=== PATIENT | female | born 1945 | race Caucasian/White ===

== ENCOUNTER 2017-05-14 11:31 | Emergency (ER) | payer OTHER, MEDICARE ==
[~2017-05-14] VITALS: Ht 167.6 cm; Wt 107.0 kg
[2017-05-14 12:47] LABS: BASOPHIL (%) 0.3 % (0-1); EOSINOPHIL (%) 3.2 % (0-5); EOSINOPHIL COUNT 0.3 K/uL (0-0.3); HEMATOCRIT 30.8 % (36.0-46.0); HEMOGLOBIN 10.1 G/DL (11.9-15.5); IMMATURE GRANULOCYTE (%) 0.8 % (0.0-0.7); LYMPHOCYTE (%) 14.2 % (15-42); LYMPHOCYTE COUNT 1.4 K/uL (1.0-2.8); MCH 30.9 PG (29.0-34.0); MCHC 32.8 G/DL (30.0-36.0); MCV 94.2 FL (83-99); MONOCYTE (%) 10.1 % (3-12); NEUTROPHIL (%) 71.4 % (45-76); NEUTROPHIL COUNT 7.1 K/uL (1.8-6.4); NRBC (%) 0.2 /100 WBC (0-0); PLATELET COUNT 522 K/uL (156-360); RBC DIS.WIDTH-CV 16.7 % (11.8-14.6); RBC DIS.WIDTH-SD 57.1 % (39-53); RED BLOOD COUNT 3.27 M/uL (3.80-5.20); WHITE BLOOD COUNT 9.9 K/uL (4.1-10.2)
[2017-05-14 12:54] LABS: CHLORIDE 108 mEq/L (99-109); POTASSIUM 4.5 mEq/L (3.7-5.4); SODIUM 139 mEq/L (136-147)
[2017-05-14 12:56] LABS: GLUCOSE 94 mg/dL (70-99)
[2017-05-14 13:00] LABS: CREATININE 0.6 mg/dL (0.6-1.3); GFR ESTIMATE (CALCULATED) > 59 mL/min/
[2017-05-14 13:01] LABS: UREA NITROGEN (BUN) 13 mg/dL (9-23)
[2017-05-14 13:03] LABS: INTER. NORMALIZED RATIO 1.5
[2017-05-14 15:00] VITALS: BP 128/75
== END 2017-05-14 15:45 ==
LOC: EME 11:31
PROVIDERS: Emergency Medicine
DX: M96.840 Postprocedural hematoma of a musculoskeletal structure following a musculoskeletal system procedure (principal); I10 Essential (primary) hypertension; E78.5 Hyperlipidemia, unspecified; K21.9 Gastro-esophageal reflux disease without esophagitis; Z98.890 Other specified postprocedural states; Z79.01 Long term (current) use of anticoagulants; Z86.73 Personal history of transient ischemic attack (TIA), and cerebral infarction without residual deficits; Z98.84 Bariatric surgery status
CPT/HCPCS: 80048; 85025; 85610; 99281; 99285

== ENCOUNTER 2017-07-19 18:22 | Inpatient (IN) | payer OTHER, MEDICARE ==
[~2017-07-19] VITALS: Ht 167.6 cm; Wt 97.6 kg
[2017-07-19 20:31] LABS: BASOPHIL (%) 0.1 % (0-1); EOSINOPHIL (%) 0.6 % (0-5); EOSINOPHIL COUNT 0.1 K/uL (0-0.3); HEMATOCRIT 38.9 % (36.0-46.0); IMMATURE GRANULOCYTE (%) 0.8 % (0.0-0.7); LYMPHOCYTE (%) 10.5 % (15-42); LYMPHOCYTE COUNT 1.4 K/uL (1.0-2.8); MCH 31.3 PG (29.0-34.0); MCHC 33.4 G/DL (30.0-36.0); MCV 93.7 FL (83-99); MONOCYTE COUNT 0.5 K/uL (0-0.8); NEUTROPHIL COUNT 11.4 K/uL (1.8-6.4); RBC DIS.WIDTH-CV 15.1 % (11.8-14.6); RBC DIS.WIDTH-SD 52.6 % (39-53); RED BLOOD COUNT 4.15 M/uL (3.80-5.20); WHITE BLOOD COUNT 13.6 K/uL (4.1-10.2)
[2017-07-19 20:39] LABS: ALBUMIN 3.2 g/dL (3.2-4.8); CHLORIDE 105 mEq/L (99-109); POTASSIUM 4.5 mEq/L (3.7-5.4); SODIUM 138 mEq/L (136-147)
[2017-07-19 20:41] LABS: GLUCOSE 115 mg/dL (70-99)
[2017-07-19 20:42] LABS: TOTAL PROTEIN 6.5 g/dL (6.4-8.3)
[2017-07-19 20:43] LABS: TOTAL BILIRUBIN 0.3 mg/dL (0.0-1.0)
[2017-07-19 20:45] LABS: ALKALINE PHOSPHATASE 136 IU/L (3-129); CREATININE 0.8 mg/dL (0.6-1.3); GFR ESTIMATE (CALCULATED) > 59 mL/min/
[2017-07-19 20:46] LABS: UREA NITROGEN (BUN) 21 mg/dL (9-23)
[2017-07-19 20:47] LABS: AST (GOT) 28 IU/L (2-34)
[2017-07-19 20:48] LABS: ALT (GPT) 30 IU/L (3-49)
[2017-07-19 21:30] LABS: PLAT.SUFFICIENCY ADEQUATE; PLATELET COUNT 255 K/uL (156-360)
[2017-07-19 23:37] LABS: INTER. NORMALIZED RATIO 2.5
[2017-07-20] MEDS ORDERED: SIMVASTATIN20 MG PO (09:27)
[2017-07-20] MEDS ORDERED: LEVOTHYROXINE50 MCG PO (09:27)
[2017-07-20] MEDS ORDERED: OMEPRAZOLE20 MG PO (09:27)
[2017-07-20] MEDS ORDERED: CITALOPRAM HBR20 MG PO (09:28)
[2017-07-20] MEDS ORDERED: WARFARIN SODIUM5 MG PO (09:29)
[2017-07-20] MEDS ORDERED: WARFARIN SODIUM2 MG PO (09:30)
[2017-07-20] MEDS ORDERED: ASPIR-LOW81 MG PO (09:30)
[2017-07-20] MEDS ORDERED: CALCIUM 500 MG1 EACH PO (09:31)
[2017-07-20] MEDS ORDERED: CYANOCOBALAM1000 MCG PO (09:31)
[2017-07-20] MEDS ORDERED: VITAMIN D31000 UNI2 PO (09:32)
[2017-07-20] MEDS ORDERED: PROBIOTIC1 EAC2 PO (09:32)
[2017-07-20 14:40] VITALS: BP 132/60
[2017-07-20 20:17] VITALS: BP 109/46
[2017-07-20 23:31] VITALS: BP 99/53
[2017-07-21 04:26] VITALS: BP 112/59
[2017-07-21 05:38] LABS: BASOPHIL (%) 0.4 % (0-1); EOSINOPHIL COUNT 0.3 K/uL (0-0.3); HEMATOCRIT 32.7 % (36.0-46.0); IMMATURE GRANULOCYTE (%) 0.3 % (0.0-0.7); INTER. NORMALIZED RATIO 2.4; LYMPHOCYTE (%) 17.9 % (15-42); LYMPHOCYTE COUNT 1.7 K/uL (1.0-2.8); MCH 31.4 PG (29.0-34.0); MCV 95.1 FL (83-99); MONOCYTE (%) 7.7 % (3-12); MONOCYTE COUNT 0.7 K/uL (0-0.8); NEUTROPHIL (%) 70.7 % (45-76); NEUTROPHIL COUNT 6.8 K/uL (1.8-6.4); PLATELET COUNT 220 K/uL (156-360); RBC DIS.WIDTH-CV 15.2 % (11.8-14.6); RBC DIS.WIDTH-SD 53.2 % (39-53); RED BLOOD COUNT 3.44 M/uL (3.80-5.20); WHITE BLOOD COUNT 9.6 K/uL (4.1-10.2)
[2017-07-21 05:39] LABS: HEMOGLOBIN 10.8 G/DL (11.9-15.5)
[2017-07-21 05:53] LABS: C-REACTIVE PROTEIN 125.2 MG/L (0-10); CHLORIDE 107 MEQ/L (99-109); CREATININE 0.6 MG/DL (0.6-1.3); GFR ESTIMATE (CALCULATED) > 59 mL/min/; POTASSIUM 3.9 MEQ/L (3.7-5.4); SODIUM 136 MEQ/L (136-147); UREA NITROGEN (BUN) 13 mg/dL (9-23)
[2017-07-21 05:54] LABS: GLUCOSE 76 mg/dL (70-99)
[2017-07-21 07:21] VITALS: BP 108/54
[2017-07-21 07:24] LABS: ERTH.SED.RATE 46 MM/HR (0-30)
[2017-07-21 10:58] VITALS: BP 120/58
[2017-07-21 16:23] VITALS: BP 122/56
[2017-07-21 23:08] VITALS: BP 119/59
[2017-07-22 06:24] LABS: INTER. NORMALIZED RATIO 2.4
[2017-07-22 07:52] VITALS: BP 112/56
[2017-07-23 00:14] VITALS: BP 113/75
[2017-07-23 06:00] LABS: INTER. NORMALIZED RATIO 2.6
[2017-07-23 08:00] VITALS: BP 122/59
[2017-07-23 11:42] VITALS: BP 134/58
[2017-07-23 15:55] VITALS: BP 116/59
[2017-07-23 23:28] VITALS: BP 127/60
[2017-07-24 06:24] LABS: INTER. NORMALIZED RATIO 2.6
[2017-07-24 08:28] VITALS: BP 113/55
[2017-07-24 12:00] VITALS: BP 111/56
[2017-07-24 16:40] VITALS: BP 124/58
[2017-07-25 00:25] VITALS: BP 124/56
[2017-07-25 06:02] LABS: INTER. NORMALIZED RATIO 2.7
[2017-07-25 08:41] VITALS: BP 103/47
[2017-07-25] MEDS ORDERED: CEFEPIME HCL2 GM IV (10:24)
[2017-07-25] MEDS ORDERED: ENDOCET 5-3251 EACH PO (10:25)
[2017-07-25 12:11] VITALS: BP 117/56
== END 2017-07-25 13:44 | disposition home health service (06) | DRG 863 ==
LOC: EME 18:22 → EDOF 07-20 03:15 → 3EAST 07-20 03:15 → ENRESERV 07-20 03:16 → 3EAST 07-20 14:21
PROVIDERS: Hospitalist; Internal Medicine; Physician Assistant
DX: T81.4XXA Infection following a procedure, initial encounter (principal); Y83.1 Surgical operation with implant of artificial internal device as the cause of abnormal reaction of the patient, or of later complication, without mention of misadventure at the time of the procedure; L03.115 Cellulitis of right lower limb; B96.5 Pseudomonas (aeruginosa) (mallei) (pseudomallei) as the cause of diseases classified elsewhere; I89.0 Lymphedema, not elsewhere classified; E03.9 Hypothyroidism, unspecified; E78.5 Hyperlipidemia, unspecified; I10 Essential (primary) hypertension; K21.9 Gastro-esophageal reflux disease without esophagitis; E66.01 Morbid (severe) obesity due to excess calories; Z96.641 Presence of right artificial hip joint; Z68.34 Body mass index [BMI] 34.0-34.9, adult; Z79.01 Long term (current) use of anticoagulants; Z86.73 Personal history of transient ischemic attack (TIA), and cerebral infarction without residual deficits; Z98.84 Bariatric surgery status; Z91.19 Patient's noncompliance with other medical treatment and regimen
CPT/HCPCS: 71045; 72193; 73701; 76937; 80048; 80053; 80202; 83605; 85025; 85610; 85651; 86140; 87040; 87070; 87075; 87077; 87186; 87205; 87641; 93971; 99281; 99285; A6214; C1769; J0690; J0692; J2543; J3010; J3370; J7030; J7050

== ENCOUNTER 2017-09-29 01:54 | Emergency (ER) | payer OTHER, MEDICARE ==
[~2017-09-29] VITALS: Ht 167.6 cm; Wt 112.8 kg
[~2017-09-29 01:54] MED LIST: ASPIR-LOW81 MG PO; CALCIUM 500 MG1 EACH PO; CEFEPIME HCL2 GM IV; CITALOPRAM HBR20 MG PO; CYANOCOBALAM1000 MCG PO; ENDOCET 5-3251 EACH PO; LEVOTHYROXINE50 MCG PO; OMEPRAZOLE20 MG PO; PROBIOTIC1 EAC2 PO; SIMVASTATIN20 MG PO; VITAMIN D31000 UNI2 PO; WARFARIN SODIUM2 MG PO; WARFARIN SODIUM5 MG PO
[2017-09-29 02:25] LABS: HEMATOCRIT 31.7 % (36.0-46.0); HEMOGLOBIN 10.7 G/DL (11.9-15.5); MCH 32.2 PG (29.0-34.0); MCHC 33.8 G/DL (30.0-36.0); MCV 95.5 FL (83-99); PLATELET COUNT 123 K/uL (156-360); RBC DIS.WIDTH-SD 49.3 % (39-53); RED BLOOD COUNT 3.32 M/uL (3.80-5.20); WHITE BLOOD COUNT 8.1 K/uL (4.1-10.2)
[2017-09-29 02:43] LABS: CHLORIDE 106 mEq/L (99-109); SODIUM 140 mEq/L (136-147)
[2017-09-29 02:45] LABS: GLUCOSE 101 mg/dL (70-99)
[2017-09-29 02:48] LABS: CREATININE 0.7 mg/dL (0.6-1.3); GFR ESTIMATE (CALCULATED) > 59 mL/min/
[2017-09-29 02:49] LABS: UREA NITROGEN (BUN) 12 mg/dL (9-23)
[2017-09-29 04:25] LABS: INTER. NORMALIZED RATIO 1.3
[2017-09-29 05:29] LABS: MCH 31.9 PG (29.0-34.0); MCHC 33.3 G/DL (30.0-36.0); MCV 95.8 FL (83-99); PLATELET COUNT 133 K/uL (156-360); RBC DIS.WIDTH-SD 49.1 % (39-53); RED BLOOD COUNT 3.13 M/uL (3.80-5.20); WHITE BLOOD COUNT 7.3 K/uL (4.1-10.2)
[2017-09-29 08:15] VITALS: BP 117/51
== END 2017-09-29 08:15 | disposition home or self-care (01) ==
LOC: EME 01:54
PROVIDERS: Emergency Medicine
DX: Z45.89 Encounter for adjustment and management of other implanted devices (principal); D64.9 Anemia, unspecified; Z96.641 Presence of right artificial hip joint; I10 Essential (primary) hypertension; E78.5 Hyperlipidemia, unspecified; K21.9 Gastro-esophageal reflux disease without esophagitis; I89.0 Lymphedema, not elsewhere classified; Z98.84 Bariatric surgery status; Z86.73 Personal history of transient ischemic attack (TIA), and cerebral infarction without residual deficits; Z79.01 Long term (current) use of anticoagulants; Z79.82 Long term (current) use of aspirin
CPT/HCPCS: 80048; 85027; 85610; 99281; 99284; J7030